=== PATIENT | male | born 1940 | race Caucasian/White ===

== ENCOUNTER → 2016-11-07 | Outpatient (CLI) | payer BC ==
[~2016-11-07] MED LIST: ASPEC81 PO; ATEN50TA8 PO; CLTP PO; CZR50 PO; GLUC15002 PO; INDA1TAB3 PO; MULT-190 PO; MULT-506 PO; MULTCHW PO
[2016-11-07 09:36] LABS: BASO % 0.1 %; BASO ABS # 0.01 K/uL (0-0.2); COMPLETE YES; EOS % 1.3 %; HEMATOCRIT 45.6 % (42-52); IG% 0.1 %; LYMPH % 25.7 %; LYMPH ABS # 1.99 K/uL (1.2-3.4); MEAN CELL VOLUME 93.3 fL (80-100); MEAN CORPUSCULAR HEMOGLOBIN 32.1 pg (25-34); MEAN CORPUSCULAR HGB CONC 34.4 g/dl (32-36); MEAN PLATELET VOLUME 10.4 fL (7.4-10.4); MONO % 14.3 %; NEUT % 58.5 %; PLATELET COUNT 201 K/uL (130-400); RED BLOOD COUNT 4.89 M/uL (4.7-6.1); WHITE BLOOD COUNT 7.74 K/uL (4.8-10.8)
[2016-11-07 09:45] LABS: URINE APPEARANCE CLEAR (CLEAR); URINE BILIRUBIN NEG (NEG); URINE COLOR YELLOW; URINE EPITHELIAL CELL AUTO 0-5 /lpf (0-5); URINE NITRITE NEG (NEG); URINE SPECIFIC GRAVITY 1.019 (1.000-1.030); UROBILINOGEN NEG (NEG)
[2016-11-07 09:46] LABS: MANUAL MICROSCOPIC REQUIRED? NO; REVIEW REQ? NO
[2016-11-07 10:07] LABS: ESTIMATED AVERAGE GLUCOSE 114 mg/dl; HA1C FLAG Normal (Normal)
[2016-11-07 10:20] LABS: BLOOD UREA NITROGEN 12 mg/dl (7-18); BUN/CREATININE RATIO 11.8 (10-20); CALCIUM 8.8 mg/dl (8.5-10.1); CARBON DIOXIDE 31 mmol/L (21-32); CHLORIDE 104 mmol/L (98-107); GLUCOSE 106 mg/dl (70-99); HDL CHOLESTEROL 34 mg/dl; POTASSIUM 3.5 mmol/L (3.5-5.1); SODIUM 140 mmol/L (136-145)
[2016-11-07 10:23] LABS: CHOLESTEROL 173 mg/dl (0-200); CHOLESTEROL/HDL RATIO 5.1; LDL CHOLESTEROL CALCULATED 101 mg/dl; TRIGLYCERIDES 191 mg/dl (0-150); VERY LOW DENSITY LIPOPROT CALC 38 mg/dl
--- NOTE | 2016-11-14 14:00 | CODING QUERY MEDICAL NECESSITY ---
SUPPORTING DIAGNOSIS NEEDED A supporting diagnosis is required for the test/procedure performed on this patient in order for us to be reimbursed by the patient's insurance. Please provide a supporting diagnosis for the following test/procedure listed below next to the test name along with your signature. *If there is no additional diagnosis for this patient that would support the following test/procedure please document that below next to the test/procedure. Test(s)/Procedure(s) that require a supporting diagnosis: * HEMOGLOBIN A1C DIAGNOSIS: Provider Signature: Date: Thank you Selena [email or web address] Information Management Once completed, please kindly fax back to [phone] For questions please call [phone]
== END | disposition home or self-care (01) ==
LOC: C.LAB1850 06:49
PROVIDERS: ATTEND Internal Medicine
DX: I10 Essential (primary) hypertension (principal); R73.9 Hyperglycemia, unspecified

== ENCOUNTER 2017-07-21 06:42 | Emergency (ER) | payer BC ==
[~2017-07-21] VITALS: Ht 180.3 cm; Wt 89.6 kg
[2017-07-21 06:48] VITALS: Ht 180.3 cm; Wt 89.6 kg
[2017-07-21] MEDS ORDERED: LORAZEPAM 0.5 MG TAB PO STA (07:05)
[2017-07-21] MEDS ORDERED: OXYCODONE HCL IR 5 MG TAB (IMMEDIATE RELEASE) PO STA (07:05)
--- NOTE | 2017-07-21 07:08 | EMERGENCY ROOM VISIT NOTE ---
History Report prepared by Frances: Anali Monique Under the Supervision of: Dr. Harvinder Mayfield D.O. 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 Movement of his neck worsens his pain and he notes he feels a lump. He denies any swelling, headaches, weakness, chest pain, arm pain, or leg pain. The patient reports he has had a herniated disc in L4 and L5 in the past. 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 A total of 10 systems reviewed and were otherwise negative. Past Medical & Surgical Medical Problems: (1) Herniation of intervertebral disc between L4 and L5 (2) High blood pressure Family History Cancer Diabetes mellitus Heart disease High blood pressure Social History Smoking Status: Former Smoker Marital Status: Housing Status: lives with significant other Occupation Status: retired Current/Historical Medications Scheduled Aspirin (Aspirin Ec), 81 MG PO HS Atenolol (Tenormin), 50 MG PO QAM Jocgaxmeopd-Ebgxnuwherp-Ejw C- (Glucosamine 1500 Complex), 1,500 PO BID Indapamide (Lozol), 1.25 MG PO QAM Losartan Potassium (Cozaar), 100 MG PO QAM Multiple Vitamins W/ Minerals (Centrum Silver), PO QAM Ocuvite Preservision (Ocuvite Preservision), 1 TAB PO BID Omeprazole (Prilosec), 20 MG PO DAILY Prednisone (Prednisone Tab), 40 MG PO DAILY Scheduled PRN Oxycodone Immediate Rel Tab (Roxicodone Ir), 1-2 TAB PO Q4H PRN for Severe Pain Allergies Coded Allergies: Shellfish (Verified Allergy, Severe, SEAFOOD - SWELLING OF TONGUE, REQUIRES SHOT, 07/21/17) Physical Exam Vital Signs Date Time Temp Pulse Resp B/P (MAP) Pulse Ox O2 Delivery O2 Flow Rate FiO2 07/21/17 08:48 56 18 149/88 93 07/21/17 06:48 36.8 62 16 180/93 97 Room Air Physical Exam GENERAL: Patient is awake, alert, and in somewhat anxious and uncomfortable appearing. EYES: The conjunctivae are clear. The pupils are round and reactive. EARS, NOSE, MOUTH AND THROAT: The nose is without any evidence of any deformity. Mucous membranes are moist tongue is midline NECK: Point tenderness over the right paravertebral cervical spine. ROM elicited pain as well as axial compression elicited pain. RESPIRATORY: Normal respiratory effort is noted there is no evidence of wheezing rhonchi or rales CARDIOVASCULAR: Regular rate and rhythm noted there no murmurs rubs or gallops normal S1 normal S2 GASTROINTESTINAL: The abdomen is soft. Bowel sounds are present in all quadrants. Abdomen is nontender BACK: No midline tenderness or or step-off noted range of motion in flexion extension as well as rotation no signs of muscle spasm noted MUSCULOSKELETAL/EXTREMITIES: There is no evidence of gross deformity full range of motion is noted in the hips and shoulders SKIN: There is no obvious evidence of any rash. There are no petechiae, pallor or cyanosis noted. NEUROLOGIC: Patient is awake alert and oriented x3 strength is symmetric patellar reflexes are 2+ bilaterally Medical Decision & Procedures ER Provider Diagnostic Interpretation: Radiology results as stated below per my review and radiologist interpretation: CERVICAL WITHOUT CONTRAST HISTORY: 76 years-old Male right sided pain, radicular acute right-sided neck pain with radiation into the bilateral upper extremities COMPARISON: None available TECHNIQUE: Multiplanar multisequence MRI of the cervical spine was obtained without contrast. 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 Imaged posterior fossa structures are unremarkable. Signal within the cervical spinal cord is unremarkable. There is reversal of the normal cervical lordosis at C3-C4. Modic type I endplate degenerative changes at C5-C6. C2-C3: Uncovertebral spurring and mild facet arthrosis without significant central canal or foraminal narrowing. C3-C4: Moderate to severe intervertebral disc space narrowing with circumferential posterior disc bulge and moderate facet arthropathy. There is mild central canal, moderate right and severe left foraminal stenosis. C4-C5: Moderate to severe intervertebral disc space narrowing with posterior disc osteophyte complex and moderate facet arthrosis. Flattening of the ventral thecal sac without significant central canal narrowing. Severe right and moderate to severe left foraminal narrowing. C5-C6: Moderate intervertebral disc space narrowing with posterior disc bulge and annular fissure favoring the right lateral recess and right foramen. Posterior spondylitic spurring with moderate facet arthrosis. These findings cause flattening of the ventral thecal sac without significant central canal narrowing. Mild to moderate right lateral recess and severe right foraminal narrowing. No significant left foraminal stenosis. C6-C7: Moderate intervertebral disc space narrowing with posterior circumferential spondylitic spurring and small posterior disc bulge favoring the right lateral recess. Flattening of the ventral thecal sac without significant central canal narrowing. There is mild bilateral foraminal stenosis. C7-T1: Uncovertebral spurring and mild facet arthrosis without central canal or foraminal narrowing. IMPRESSION: 1. Multilevel intervertebral disc space narrowing with spondylitic spurring and facet arthrosis. Mild central canal narrowing is noted at C3-C4. 2. Discogenic degenerative changes and facet arthrosis at C5-C6 causes severe right foraminal narrowing, possibly accounting for the patient's reported right-sided symptomatology. 3. Additional multilevel intervertebral disc space narrowing as detailed above. 4. Modic type I endplate degenerative changes at C5-C6. The above report was generated using voice recognition software. It may contain grammatical, syntax or spelling errors. Electronically signed by: Gianluca Andrews M.D. 07/21/2017 8:40 AM Medications Administered Medications (Trade) Dose Ordered Sig/Deepthi Route Start Time Stop Time Status Last Admin Dose Admin Oxycodone HCl (Roxicodone Immediate Rel Tab) 5 mg NOW STAT PO 07/21/17 07:05 07/21/17 07:07 DC 07/21/17 07:17 5 MG Lorazepam (Ativan Tab) 0.5 mg NOW STAT PO 07/21/17 07:05 07/21/17 07:08 DC 07/21/17 07:17 0.5 MG Prednisone (PredniSONE TAB) 60 mg NOW STAT PO 07/21/17 08:52 07/21/17 08:53 DC 07/21/17 09:05 60 MG ED Course 0700: The patient was evaluated in room B2. A complete history and physical examination were performed. 0705: Ordered Lorazepam 0.5 mg PO, Oxycodone HCl 5 mg PO 0852: Ordered Prednisone 60 mg PO 0853: Upon reevaluation, the patient is feeling better. I discussed the results and treatment plan with him. He verbalized agreement of the treatment plan. He was discharged home. Medical Decision Prior records reviewed and summarized above. Triage Nursing notes reviewed and agree them. The patient's history was concerning for traumatic injury. Differential diagnosis: Etiologies such as fracture, dislocation, neurovascular compromise, compartment syndrome, soft tissue injury, as well as others were entertained. The patient is a 76-year-old male who presented to the emergency department for an evaluation of reproducible right-sided neck pain. The patient had very significant symptoms. He had no focal neurologic deficits. Given his history of lumbar disc disease MRI was obtained. The patient was treated with pain medication as well as steroids in the emergency department. I discussed patient 's radiographic studies with him. I do feel that the MRI likely shows the cause of the patient's presenting pain. I discussed follow-up with the patient. I discussed this case with the emergency department case sealer. We will try to schedule the patient a follow-up appointment with the orthopedic spinal specialist. I did discuss with the patient that this may not necessarily require surgery however it may require other modalities such as injections or physical therapy but these could be set up through the orthopedic spinal specialist as well. He was encouraged to rest and avoid any strenuous activity. He was also encouraged to continue all medications as prescribed and return to the emergency department immediately if symptoms change worsen or the need arises. Medication Reconcilliation Current Medication List: was personally reviewed by me Blood Pressure Screening Patient's blood pressure: Elevated blood pressure Blood pressure disposition: Elevated BP felt to be situational Impression Primary Impression: Neck pain on right side Additional Impression: Cervical radiculopathy Scribe Attestation The scribe's documentation has been prepared under my direction and personally reviewed by me in its entirety. I confirm that the note above accurately reflects all work, treatment, procedures, and medical decision making performed by me. Departure Information Dispostion Home / Self-Care Prescriptions Oxycodone Immediate Rel Tab (ROXICODONE IR) 5 Mg Tab 1-2 TAB PO Q4H Y for Severe Pain, #24 TAB Prov: Harvinder Mayfield, DO 07/21/17 Omeprazole (PRILOSEC) 20 Mg Capcr 20 MG PO DAILY, #30 CAP Prov: Harvinder Mayfield, DO 07/21/17 Prednisone (Prednisone Tab) 20 Mg Tab 40 MG PO DAILY, #10 TAB Prov: Harvinder Mayfield, DO 07/21/17 Referrals Doug Hager M.D. (PCP) Forms HOME CARE DOCUMENTATION FORM, IMPORTANT VISIT INFORMATION, WORK / SCHOOL INSTRUCTIONS Patient Instructions My [facility] [place] [employer] Additional Instructions Continue all medications as prescribed. Follow-up with the orthopedic spinal specialist this week as scheduled. Continue to use the soft cervical collar as instructed. Do not use this for more than a few days. Avoid any strenuous activity or heavy lifting. Return to the emergency department immediately if symptoms change worsen or the need arises. Continue using Tylenol as directed for mild pain. Start taking the prednisone on Saturday as you are already given a dose in the emergency department today. Problem Qualifiers
[2017-07-21] MEDS ORDERED: LOSA1TAB38 PO (07:19)
[2017-07-21] MEDS ORDERED: ASPI81TA28 PO (07:19)
--- NOTE | 2017-07-21 08:41 | DIAGNOSTIC IMAGING REPORT ---
CERVICAL WITHOUT CONTRAST HISTORY: 76 years-old Male right sided pain, radicular acute right-sided neck pain with radiation into the bilateral upper extremities COMPARISON: None available TECHNIQUE: Multiplanar multisequence MRI of the cervical spine was obtained without contrast. FINDINGS: [employer] Manager localizer images demonstrate no gross abnormality. Imaged posterior fossa structures are unremarkable. Signal within the cervical spinal cord is unremarkable. There is reversal of the normal cervical lordosis at C3-C4. Modic type I endplate degenerative changes at C5-C6. C2-C3: Uncovertebral spurring and mild facet arthrosis without significant central canal or foraminal narrowing. C3-C4: Moderate to severe intervertebral disc space narrowing with circumferential posterior disc bulge and moderate facet arthropathy. There is mild central canal, moderate right and severe left foraminal stenosis. C4-C5: Moderate to severe intervertebral disc space narrowing with posterior disc osteophyte complex and moderate facet arthrosis. Flattening of the ventral thecal sac without significant central canal narrowing. Severe right and moderate to severe left foraminal narrowing. C5-C6: Moderate intervertebral disc space narrowing with posterior disc bulge and annular fissure favoring the right lateral recess and right foramen. Posterior spondylitic spurring with moderate facet arthrosis. These findings cause flattening of the ventral thecal sac without significant central canal narrowing. Mild to moderate right lateral recess and severe right foraminal narrowing. No significant left foraminal stenosis. C6-C7: Moderate intervertebral disc space narrowing with posterior circumferential spondylitic spurring and small posterior disc bulge favoring the right lateral recess. Flattening of the ventral thecal sac without significant central canal narrowing. There is mild bilateral foraminal stenosis. C7-T1: Uncovertebral spurring and mild facet arthrosis without central canal or foraminal narrowing. IMPRESSION: 1. Multilevel intervertebral disc space narrowing with spondylitic spurring and facet arthrosis. Mild central canal narrowing is noted at C3-C4. 2. Discogenic degenerative changes and facet arthrosis at C5-C6 causes severe right foraminal narrowing, possibly accounting for the patient's reported right-sided symptomatology. 3. Additional multilevel intervertebral disc space narrowing as detailed above. 4. Modic type I endplate degenerative changes at C5-C6. The above report was generated using voice recognition software. It may contain grammatical, syntax or spelling errors. Electronically signed by: Gianluca Andrews M.D. 07/21/2017 8:40 AM Dictated Date/Time: 07/21/2017 8:28 AM
[2017-07-21] MEDS ORDERED: PRED20TA2 PO (09:01)
[2017-07-21] MEDS ORDERED: OXYC1TAB3 PO (09:01)
[2017-07-21] MEDS ORDERED: PRLSR20 PO (09:01)
[2017-07-21 09:30] VITALS: BP 144/79; PULSE 62; TEMP 36.8; O2SAT 92
== END 2017-07-21 09:31 | disposition home or self-care (01) ==
LOC: C.EDB 06:44
DX: M54.12 Radiculopathy, cervical region (principal); Z87.39 Personal history of other diseases of the musculoskeletal system and connective tissue; Z87.891 Personal history of nicotine dependence; Z79.82 Long term (current) use of aspirin; Z91.013 Allergy to seafood

== ENCOUNTER → 2017-11-04 | Outpatient (CLI) | payer BC ==
[~2017-11-04] MED LIST changes: -ASPEC81 PO; +ASPI81TA28 PO; -CLTP PO; -CZR50 PO; +LOSA1TAB38 PO; -MULT-506 PO
[2017-11-04 09:36] LABS: BASO % 0.3 %; BASO ABS # 0.02 K/uL (0-0.2); EOS % 0.9 %; EOS ABS # 0.07 K/uL (0-0.5); HEMATOCRIT 43.6 % (42-52); HEMOGLOBIN 14.9 g/dL (14.0-18.0); IG# 0.02 K/uL (0.00-0.02); LYMPH % 24.3 %; LYMPH ABS # 1.92 K/uL (1.2-3.4); MEAN CELL VOLUME 91.8 fL (80-100); MEAN CORPUSCULAR HEMOGLOBIN 31.4 pg (25-34); MEAN CORPUSCULAR HGB CONC 34.2 g/dl (32-36); MEAN PLATELET VOLUME 10.1 fL (7.4-10.4); MONO ABS # 1.19 K/uL (0.11-0.59); NEUT % 59.2 %; NEUT ABS # 4.69 K/uL (1.4-6.5); PLATELET COUNT 266 K/uL (130-400); RED CELL DISTRIBUTION WIDTH CV 13.4 % (11.5-14.5); RED CELL DISTRIBUTION WIDTH SD 44.7 fL (36.4-46.3); WHITE BLOOD COUNT 7.91 K/uL (4.8-10.8)
[2017-11-04 10:03] LABS: BLOOD UREA NITROGEN 15 mg/dl (7-18); CALCIUM 8.8 mg/dl (8.5-10.1); CARBON DIOXIDE 29 mmol/L (21-32); CHOLESTEROL 154 mg/dl (0-200); CREATININE 0.98 mg/dl (0.60-1.40); GLUCOSE 105 mg/dl (70-99); LDL CHOLESTEROL CALCULATED 89 mg/dl; POTASSIUM 3.3 mmol/L (3.5-5.1); SODIUM 139 mmol/L (136-145); URIC ACID 5.6 mg/dl (2.6-7.2)
[2017-11-04 10:10] LABS: HEMOGLOBIN A1C 5.7 % (4.5-5.6)
== END | disposition home or self-care (01) ==
LOC: C.LAB1850 06:48
PROVIDERS: ATTEND Internal Medicine
DX: I10 Essential (primary) hypertension (principal)